=== PATIENT | female | born 1960 ===

== ENCOUNTER 2017-07-07 08:38 | Day surgery (SDC) | payer MEDICAID ==
[2017-06-19 09:28] VITALS: BMI 27.4
[2017-07-07] MEDS ORDERED: ceFAZolin IV 1 gm in Dextrose 1 GM/50 ML BAG IVPB ONE (09:26)
[2017-07-07] MEDS ORDERED: Etomidate 20 mg/10ml Inj IV ONE (09:28)
[2017-07-07] MEDS ORDERED: Propofol 10 mg/ml Inj (20 ML) ONE ×2 (09:31→09:47)
[2017-07-07] MEDS ORDERED: Esmolol 100 mg/10ml Inj IV ONE (09:46)
[2017-07-07] MEDS ORDERED: HYDROmorphone 0.5 mg/0.5 ml ISec IVP PRN (10:13)
[2017-07-07] MEDS ORDERED: Acetaminophen-Codeine 300/30 mg Tab PO PRN (10:14)
[2017-07-07] MEDS ORDERED: Dextrose 5%/0.45% NS 1,000 ML IV SCH (10:15)
[2017-07-07] MEDS ORDERED: Succinylcholine Chloride 20 mg/ml Syr (5 ml) IV ONE (10:31)
[2017-07-07 13:08] VITALS: RESP 16
[2017-07-07 15:20] VITALS: BP 127/62; PULSE 82; TEMP 97.8; O2SAT 98
--- NOTE | 2017-07-10 08:58 | OP ---
PROCEDURE DATE: 07/07/2017 PREOPERATIVE DIAGNOSIS: Possible throat lesion. POSTOPERATIVE DIAGNOSIS: Possible throat lesion. PROCEDURE: Direct laryngoscopy. SIGNIFICANT FINDINGS: No mass, no lesion. DESCRIPTION OF PROCEDURE: The patient was brought into the room, placed in supine position. Anesthesia was initiated through ET tube. Shoulder roll was placed and neck extended. Tooth guard was placed over upper teeth in order to protect them and was removed at the end of the case. Direct laryngoscope was inserted into the oral cavity and was passed into the oropharynx and hypopharynx. The pharyngeal wall, base of tongue, vallecula, epiglottis, AE folds, false cords, true cords, piriform sinuses, arytenoids were brought into view. No masses or lesions were noted. The CAT scan had shown a possible lesion in the left vallecula and AE folds on both sides, therefore those areas were biopsied multiple times. Bleeding was controlled using Cold water irrigation. Direct laryngoscope was removed. The patient was taken off anesthesia and taken to recovery in stable manner. Jerel Montiel MD [facility]
== END 2017-07-07 15:20 | disposition home or self-care (01) ==
LOC: C.SDS 08:38
PROVIDERS: ATTEND Otolaryngology
DX: J38.7 Other diseases of larynx (principal); R22.1 Localized swelling, mass and lump, neck
CPT/HCPCS: 31535; 88305; J0690; J1100; J1170; J2001; J2405; J2704; J3010

== ENCOUNTER 2017-07-11 09:00 | Emergency (ER) | payer MEDICAID ==
[2017-07-11 09:05] VITALS: O2SAT 96; BMI 29.2
[2017-07-11] MEDS ORDERED: Lactated Ringer's 1,000 ML IV ONE (09:51)
--- NOTE | 2017-07-11 09:51 | C.PDOC ---
History Of Present Illness 56 year old female presents to the ED with complaints of abdominal pain, nausea , and diarrhea for four days. Patient reports symptoms began after use of medications including Augmentin 875 mg and Tylenol with Codeine after having a biopsy performed by Dr. Montiel. Patient is unsure what exactly was biopsied. She notes last episode of diarrhea was earlier today and had three episodes today. Patient reports she has not been drinking much water because she has not been thirsty. Patient denies vomiting or any other complaints at this time. Time Seen by Provider: 07/11/17 09:33 Chief Complaint (Nursing): Abdominal Pain History Per: Patient History/Exam Limitations: no limitations Onset/Duration Of Symptoms: Days (4 days ) Current Symptoms Are (Timing): Still Present Quality Of Discomfort: "Pain" Associated Symptoms: Fever, Nausea, Diarrhea. denies: Chills, Vomiting Exacerbating Factors: None Alleviating Factors: None Last Bowel Movement: Today Recent travel outside of the [place]: No Abnormal Vaginal Bleeding: No Past Medical History Reviewed: Historical Data, Nursing Documentation, Vital Signs Vital Signs: Last Vital Signs Temp 99.1 F 07/11/17 09:04 Pulse 89 07/11/17 09:04 Resp 18 07/11/17 09:04 BP 145/90 07/11/17 09:04 Pulse Ox 96 07/11/17 12:09 - Medical History PMH: Fractures (RT LOWER LEG CASTED 10 YRS AGO) Surgical History: Appendectomy, Tonsillectomy - [facility] IMMOBILIZ/WOUND ATTN NEC (11/14/13) INJECT/INFUSE NEC (08/28/13) OTHER LOCAL DESTRUC SKIN (08/12/13) Family History: States: Unknown Family Hx - Social History Hx Alcohol Use: No Hx Substance Use: No - Immunization History Hx Tetanus Toxoid Vaccination: No Review Of Systems Constitutional: Positive for: Fever Cardiovascular: Negative for: Chest Pain, Palpitations Respiratory: Negative for: Cough, Shortness of Breath Gastrointestinal: Positive for: Nausea, Abdominal Pain, Diarrhea. Negative for : Vomiting Genitourinary: Negative for: Dysuria, Hematuria Physical Exam - Physical Exam Appears: Non-toxic, No Acute Distress Skin: Warm, Dry, No Rash Head: Atraumatic, Normacephalic, No Tenderness Eye(s): bilateral: Normal Inspection, PERRL, EOMI Oral Mucosa: Moist Neck: Supple Chest: Symmetrical, No Deformity Cardiovascular: Rhythm Regular, No Murmur Respiratory: No Rales, No Rhonchi, No Wheezing, Other (clear to auscultation bilaterally ) Gastrointestinal/Abdominal: Soft, No Tenderness, No Distention, No Guarding, No Rebound Back: No CVA Tenderness Extremity: Normal ROM, No Tenderness Neurological/Psych: Oriented x3 ED Course And Treatment - Laboratory Results Result Diagrams: 07/11/17 10:30 07/11/17 10:30 O2 Sat by Pulse Oximetry: 96 (RA) Pulse Ox Interpretation: Normal Progress Note: CBC, CMP, and UA were ordered. Patient was given Pepcid and Lactated Ringer's IV. Medical Decision Making Medical Decision Making: Prior records reviewed: 07/07/17 Dr Montiel performed laryngoscopy with biopsy for possible throat lesion seen on CT at left vallecula Impression: abdominal pain and diarrhea likely from antibiotic Plan: Labs, LR, Pepcid Progress: Labs reviewed and unremarkable. normal H/H. No electrolyte abnormality. Re-Eval: patient resting in bed in no distress. She has no fever and vital signs are stable. Patient reports feeling the same. Abdomen is soft and nontender. Explained lab results and symptoms likely related to Augmentin. Patient will be discharged and instructed to follow up Disposition Counseled Patient/Family Regarding: Diagnosis, Need For Followup, Rx Given - Disposition Referrals: Jerel Montiel MD [Staff Provider] - Disposition: HOME/ ROUTINE Disposition Time: 12:06 Condition: STABLE Additional Instructions: Por favor, tome medicamentos dos veces al da para la diarrea Por favor, nader un seguimiento con castro mdico de cabecera para ann marie evaluacin adicional Prescriptions: Saccharomyces Boulardi [Florastor] 1 cap PO BID #14 cap Instructions: Acute Diarrhea (ED), Nutrition Tips for Relief of Diarrhea (DC) Forms: [facility] (Ukrainian) Print Language: BELIZEAN - POA Present On Arrival: None - Clinical Impression Clinical Impression: Diarrhea - PA / [employer] / Resident Statement MD/DO has reviewed & agrees with the documentation as recorded. - Scribe Statement The provider has reviewed the documentation as recorded by the Scribe Tashia James All medical record entries made by the Scribe were at my direction and personally dictated by me. I have reviewed the chart and agree that the record accurately reflects my personal performance of the history, physical exam, medical decision making, and the department course for this patient. I have also personally directed, reviewed, and agree with the discharge instructions and disposition.
[2017-07-11] MEDS ORDERED: Lactated Ringer's 1,000 ML ONE (10:29)
[2017-07-11 10:40] LABS: HEMATOCRIT 37.3 % (34.0-47.0); MEAN CELL VOLUME 83.2 fL (81.0-99.0); MEAN CORPUSCULAR HEMOGLOBIN 27.3 pg (27.0-31.0); MEAN CORPUSCULAR HGB CONC 32.8 g/dL (33.0-37.0); MEAN PLATELET VOLUME 8.1 fL (7.2-11.7); RED CELL DISTRIBUTION WIDTH 13.6 % (11.5-14.5); WHITE BLOOD COUNT 8.6 K/uL (4.8-10.8)
[2017-07-11 10:42] LABS: RBC URINE 14 /hpf (0-3); URINE BILIRUBIN NEGATIVE (NEGATIVE); URINE BLOOD 1+ (NEGATIVE); URINE COLOR Yellow (YELLOW); URINE GLUCOSE (UA) NORMAL (Normal); URINE KETONE NEGATIVE (NEGATIVE); URINE LEUKOCYTE ESTERASE NEG Leu/uL (Negative); URINE PROTEIN NEGATIVE (NEGATIVE); URINE UROBILINOGEN NORMAL mg/dL (0.2-1.0); WBC URINE 3 /hpf (0-5)
[2017-07-11 11:56] LABS: POTASSIUM 4.8 mmol/L (3.6-5.2)
[2017-07-11 11:57] LABS: ALB/GLOB RATIO 1.4 (1.0-2.1); ALKALINE PHOSPHATASE 66 U/L (38-126); ALT/SGPT 41 U/L (9-52); AST/SGOT 33 U/L (14-36); BILIRUBIN,TOTAL 1.2 mg/dL (0.2-1.3); BLOOD UREA NITROGEN 6 mg/dL (7-17); CALCIUM 8.2 mg/dl (8.6-10.4); CARBON DIOXIDE 25 mmol/L (22-30); CHLORIDE 98 mmol/L (98-107); GFR AFRICAN-AMERICAN > 60; GLUCOSE,RANDOM 93 mg/dL (65-105); SODIUM 133 mmol/L (132-148); TOTAL PROTEIN 7.2 g/dL (6.3-8.3)
[2017-07-11 12:51] VITALS: BP 133/82; PULSE 88; RESP 16; TEMP 98.8
== END 2017-07-11 12:55 | disposition home or self-care (01) ==
LOC: C.ER 09:00
DX: R19.7 Diarrhea, unspecified (principal)
CPT/HCPCS: 80053; 81001; 85027; 96361; 96374; 99284; J7120